=== PATIENT | female | born 1995 ===

== ENCOUNTER 2018-01-12 19:10 | Emergency (ER) | payer SELFPAY ==
[2018-01-12 20:06] VITALS: BMI 22.8
[2018-01-12 20:13] VITALS: BP 116/68; PULSE 62; RESP 18; TEMP 98.5; O2SAT 100
--- NOTE | 2018-01-12 20:16 | ED PDOC ---
Arrival/HPI - General Chief Complaint: ENT Problem Time Seen by Provider: 01/12/18 19:58 Historian: Patient - History of Present Illness Narrative History of Present Illness (Text): 01/12/18 20:13 Patient is a 22 year old female who presents to the emergency department complaining of right parotid swelling. Patient reports that swelling started a month ago, and recently started hurting with touch. She also mentions that it hurts to swallow. Patient denies fevers, chills, cough, shortness of breath, chest pain, dyspnea on exertion, abdominal pain, nausea, vomiting, diarrhea, back pain, neck pain, headache, dizziness, or any other complaint. Time/Duration: > week Symptom Course: Worsening Context: Home Past Medical History - Provider Review Nursing Documentation Reviewed: Yes - Infectious Disease Hx of Infectious Diseases: None - Psychiatric Hx Substance Use: No Family/Social History - Physician Review Nursing Documentation Reviewed: Yes Family/Social History: No Known Family HX Smoking Status: Never Smoked Hx Alcohol Use: No Hx Substance Use: No Allergies/Home Meds Allergies/Adverse Reactions: Allergies No Known Allergies Allergy (Verified 01/12/18 20:05) Review of Systems - Physician Review All systems were reviewed & negative as marked: Yes - Review of Systems Constitutional: absent: Fevers, Night Sweats ENT: Other (right parotid gland swelling) Respiratory: absent: SOB, Cough Cardiovascular: absent: Chest Pain, BA Gastrointestinal: absent: Abdominal Pain, Diarrhea, Nausea, Vomiting Genitourinary Female: absent: Dysuria Musculoskeletal: absent: Back Pain, Neck Pain Neurological: absent: Headache, Dizziness Physical Exam Vital Signs Reviewed: Yes Vital Signs Temp Pulse Resp BP Pulse Ox 01/12/18 22:00 98.5 F 62 18 116/68 100 01/12/18 20:09 98.5 F 62 18 116/68 100 Temperature: Afebrile Blood Pressure: Normal Pulse: Regular Respiratory Rate: Normal Appearance: Positive for: Well-Appearing Mental Status: Positive for: Alert and Oriented X 3 - Systems Exam Head: Present: Atraumatic, Normocephalic Pupils: Present: PERRL Extroacular Muscles: Present: EOMI Conjunctiva: Present: Normal Mouth: Present: Moist Mucous Membranes Neck: Present: Normal Range of Motion, Other (Swelling of right parotid gland) Respiratory/Chest: Present: Clear to Auscultation, Good Air Exchange. No: Respiratory Distress, Accessory Muscle Use Cardiovascular: Present: Regular Rate and Rhythm, Normal S1, S2. No: Murmurs Abdomen: No: Tenderness, Distention, Peritoneal Signs Back: Present: Normal Inspection Upper Extremity: Present: Normal Inspection. No: Cyanosis, Edema Lower Extremity: Present: Normal Inspection. No: Edema Neurological: Present: GCS=15, CN II-XII Intact, Speech Normal Skin: Present: Warm, Dry, Normal Color. No: Rashes Psychiatric: Present: Alert, Oriented x 3, Normal Insight, Normal Concentration Medical Decision Making ED Course and Treatment: 01/12/18 20:19 Impression: Patient is a 22 year old female who is complaining of a right parotid area swelling that started a month ago and has recently become painful. Differential Diagnosis included but are not limited to: Parotid gland Parotitis Plan: -- Amylase -- Lipase -- CBC -- Reassess and disposition Progress Notes: - Lab Interpretations Lab Results: 01/12/18 20:50 01/12/18 20:50 Lab Results 01/12/18 20:50: Sodium 143, Potassium 4.3, Chloride 105, Carbon Dioxide 26, Anion Gap 16, BUN 10, Creatinine 0.6 L, Est GFR ( Amer) > 60, Est GFR ( Non-Af Amer) > 60, Random Glucose 92, Calcium 9.4, Total Bilirubin 0.5, AST 24, ALT 16, Alkaline Phosphatase 79, Total Protein 8.5 H, Albumin 4.4, Globulin 4.0 , Albumin/Globulin Ratio 1.1, Amylase 93, Lipase 127 01/12/18 20:50: WBC 8.2, RBC 4.02, Hgb 11.9 L, Hct 35.0 L, MCV 87.1, MCH 29.6, MCHC 34.0, RDW 12.1, Plt Count 310, MPV 10.1, Gran % 51.6, Lymph % (Auto) 39.2 H , Graham % (Auto) 7.3 H, Eos % (Auto) 1.7, Baso % (Auto) 0.2, Gran # 4.23, Lymph # (Auto) 3.2, Graham # (Auto) 0.6, Eos # (Auto) 0.1, Baso # (Auto) 0.02 I have reviewed the lab results: Yes - Medication Orders Current Medication Orders: Discontinued Medications Amoxicillin/Clavulanate Potassium (Augmentin 875 Mg-125 Mg Tab) 1 tab PO STAT STA PRN Reason: Protocol Stop: 01/12/18 21:41 Last Admin: 01/12/18 22:01 Dose: Not Given Non-Admin Reason: Patient Refused - Scribe Statement The provider has reviewed the documentation as recorded by the Scribe Ashish Ceferinoalley Provider Scribe Attestation: All medical record entries made by the Scribe were at my direction and personally dictated by me. I have reviewed the chart and agree that the record accurately reflects my personal performance of the history, physical exam, medical decision making, and the department course for this patient. I have also personally directed, reviewed, and agree with the discharge instructions and disposition. Disposition/Present on Arrival - Present on Arrival Any Indicators Present on Arrival: No History of DVT/PE: No History of Uncontrolled Diabetes: No Urinary Catheter: No History of Decub. Ulcer: No History Surgical Site Infection Following: None - Disposition Have Diagnosis and Disposition been Completed?: Yes Diagnosis: Parotiditis Disposition: HOME/ ROUTINE Disposition Time: 22:00 Condition: GOOD Discharge Instructions (ExitCare): Parotitis Print Language: UPPER SORBI[place] Prescriptions: Amoxicillin/Clavulanate [Augmentin 875 MG-125 MG] 1 tab PO BID #10 tab Referrals: [facility] [Outside] - Follow up with primary Korina Bloom MD [Medical Doctor] - Follow up with primary Forms: [employer] (Bulgarian)
[2018-01-12 21:11] LABS: ALB/GLOB RATIO 1.1 (1.1-1.8); ALBUMIN 4.4 g/dL (3.0-4.8); ALT/SGPT 16 U/L (7-56); AMYLASE 93 U/L (35-125); AST/SGOT 24 U/L (14-36); BLOOD UREA NITROGEN 10 mg/dL (7-21); CALCIUM 9.4 mg/dL (8.4-10.5); GFR NON-AFRICAN AMERICAN > 60; LIPASE 127 U/L (23-300)
[2018-01-12 21:12] LABS: BASO # 0.02 K/mm3 (0.0-2.0); BASO % 0.2 % (0.0-3.0); EOS # 0.1 (0.0-0.7); EOS % 1.7 % (1.5-5.0); GRAN # 4.23 (1.4-6.5); GRAN % 51.6 % (50.0-68.0); HEMOGLOBIN 11.9 g/dL (12.0-16.0); LYMPH # 3.2 (1.2-3.4); LYMPH % 39.2 % (22.0-35.0); MEAN CELL VOLUME 87.1 fl (80.0-105.0); MEAN CORPUSCULAR HEMOGLOBIN 29.6 pg (25.0-35.0); MEAN PLATELET VOLUME 10.1 fl (7.0-11.0); MONO # 0.6 (0.1-0.6); MONO % 7.3 % (1.0-6.0); RBC 4.02 10^6/uL (3.5-6.1); RED CELL DISTRIBUTION WIDTH 12.1 % (11.5-14.5); WHITE BLOOD COUNT 8.2 10^3/ul (4.5-11.0)
[2018-01-12] MEDS ORDERED: Amoxicillin-Clav 875-125 mg Tab PO STA (21:40)
== END 2018-01-12 22:00 | disposition home or self-care (01) ==
LOC: ED 19:10
DX: K11.20 Sialoadenitis, unspecified (principal)